=== PATIENT | female | born 1960 ===

== ENCOUNTER 2017-04-15 09:20 | Inpatient (IN) | payer BC ==
[~2017-04-15 09:20] MED LIST: Lactated Ringer's 1,000 ML IV ONE
[2017-04-15 09:26] VITALS: BMI 22.1
[2017-04-15 10:22] LABS: BLOOD UREA NITROGEN 10 mg/dl (7-17); CALCIUM 9.8 mg/dL (8.4-10.2); GFR AFRICAN-AMERICAN > 60; GFR NON-AFRICAN AMERICAN > 60
[2017-04-15 10:28] LABS: BASO # 0.1 K/uL (0.0-0.2); BASO % 0.4 % (0.0-2.0); EOS # 0.2 K/uL (0.0-0.7); LYMPH # 1.6 K/uL (1.0-4.3); LYMPH % 9.3 % (20.0-40.0); MEAN CELL VOLUME 90.4 fl (81.0-99.0); MEAN CORPUSCULAR HEMOGLOBIN 30.4 pg (27.0-31.0); MEAN CORPUSCULAR HGB CONC 33.6 g/dL (33.0-37.0); MEAN PLATELET VOLUME 7.9 fl (7.2-11.7); MONO # 1.4 K/uL (0.0-0.8); MONO % 8.4 % (0.0-10.0); NEUT # 13.6 K/uL (1.8-7.0); NEUT % 80.9 % (50.0-75.0); NRBC % 0.1 % (0.0-0.0); PLATELET COUNT 257 K/uL (130-400); RBC 4.61 Mil/uL (3.80-5.20); RED CELL DISTRIBUTION WIDTH 12.5 % (11.5-14.5); WHITE BLOOD COUNT 16.8 K/uL (4.8-10.8)
--- NOTE | 2017-04-15 12:04 | ED PDOC ---
HPI: General Adult Time Seen by Provider: 04/15/17 09:41 Chief Complaint (Nursing): ENT Problem Chief Complaint (Provider): Throat Pain and Difficulty swallowing History Per: Patient History/Exam Limitations: no limitations Onset/Duration Of Symptoms: Days (3 days) Have you had recent travel within the past 21 days to any of the following countries: [place], [place], [place] or [place]?: No Additional Complaint(s): So Avelar, a 56 year old female, presents to the ED for throat pain and difficulty swallowing she has been experiencing since Monday. The patient states that the symptoms started after she swallowed a chicken bone. She reports that the pain has been getting worse. Denies difficulty breathing, change in speech, denies drooling. Denies fever but did experience chills this morning. Past Medical History Reviewed: Historical Data, Nursing Documentation, Vital Signs Vital Signs: Last Vital Signs Temp 99.7 F H 04/15/17 13:16 Pulse 110 H 04/15/17 13:16 Resp 20 04/15/17 13:16 BP 140/90 04/15/17 13:16 Pulse Ox 100 04/15/17 13:07 - Medical History PMH: No Chronic Diseases - Surgical History Surgical History: No Surg Hx - Family History Family History: States: Unknown Family Hx - Home Medications Home Medications: Ambulatory Orders Medication Instructions Recorded No Known Home Med 04/15/17 - Allergies Allergies/Adverse Reactions: Allergies Allergy/AdvReac Type Severity Reaction Status Date / Time No Known Allergies Allergy Verified 04/15/17 09:27 Review of Systems ENT: Positive for: Throat Pain, Other (Difficulty swallowing) Neurological: Negative for: Change in Speech Physical Exam - Reviewed Nursing Documentation Reviewed: Yes Vital Signs Reviewed: Yes - Physical Exam Appears: Positive for: Non-toxic, No Acute Distress Head Exam: Positive for: ATRAUMATIC, NORMAL INSPECTION, NORMOCEPHALIC Skin: Positive for: Normal Color, Warm, Dry Eye Exam: Positive for: Normal appearance, EOMI, PERRL ENT: Positive for: Normal ENT Inspection, Pharynx Is (Oropharynx is patent.), Other (No subcutaneous emphysema;No crepitus; no drooling.) Neck: Positive for: Normal Cardiovascular/Chest: Positive for: Regular Rate, Rhythm, Chest Non Tender. Negative for: Tachycardia Respiratory: Positive for: Normal Breath Sounds. Negative for: Wheezing, Respiratory Distress Neurologic/Psych: Positive for: Alert - Laboratory Results Result Diagrams: 04/15/17 09:55 04/15/17 09:55 - ECG O2 Sat by Pulse Oximetry: 100 (RA) Pulse Ox Interpretation: Normal Medical Decision Making Medical Decision Makin Intial Impression: 56 year old female presenting with throat pain and difficulty swallowing Initial Plan: * Neck chest with contrast CT - rule out rupture or pnuemomediastinum * CBC * Reevaluation Labs reviewed WBC elevated 16.8 w left shift BMP unremarkable Blood cultures and sepsis workup initiated after WBC returned elevated. NS bolus ordered, blood cultures and lactate CT neck/chest discussed w radiologist Dr Ballesteros Appears as chicken bone lodged in esophageal wall with possible abscess formation/ perforation: Impression: There is an approximately 2.84 cm linear radiopaque foreign body that exhibits bony density . Findings are consistent with this patient's history of swallowed chicken bone. This foreign body is transversely lodged within the soft tissues below the level of the true vocal cords and posterior to the trachea possibly extending partially through the esophageal wall. Surrounding subcutaneous air is present consistent with perforation. . There also appears to be a small amount of surrounding fluid consistent with early infection. . The possibility of early small abscess cannot be completely excluded. Emergency room physician aware of the findings. CT chest: No signs mediastinitis at time. lactate 1.0, c/w sepsis but not severe sepsis. HR improving. D/w Dr Garza solution manager medicine and Dr Nelson solution manager GI, will take to endoscopy today. Remain NPO. Scribe Attestation Documented by Lory Rosen acting as a scribe for Cal Ponce MD. Provider Attestation: All medical record entries made by the Scribe were at my direction and personally dictated by me. I have reviewed the chart and agree that the record accurately reflects my personal performance of the history, physical exam, medical decision making, and the department course for this patient. I have also personally directed, reviewed, and agree with the discharge instructions and disposition. Disposition - Clinical Impression Clinical Impression: Perforation esophagus, Sepsis - Patient ED Disposition Is Patient to be Admitted: Yes Counseled Patient/Family Regarding: Studies Performed, Diagnosis (explained in beninese via Cathleen dykes RN) - Disposition Disposition Time: 12:35 Condition: GUARDED - Pt Status Changed To: Hospital Disposition Of: Inpatient - Admit Certification Admit to Inpatient:: After my assessment, the patient will require hospitalization for at least two midnights. This is because of the severity of symptoms shown, intensity of services needed, and/or the medical risk in this patient being treated as an outpatient. - POA Present On Arrival: None
[2017-04-15] MEDS ORDERED: Sodium Chloride 0.9% 1,000 ML IV STA (12:07)
[2017-04-15] MEDS ORDERED: Piperacillin/Tazobact 4.5 GM in Sodium Chloride 0.9% 100 ML IVPB STA (12:43)
[2017-04-15] MEDS ORDERED: Vancomycin 1 g Inj ONE (13:11)
--- NOTE | 2017-04-15 13:12 | CT ---
PROCEDURE: CT scan of the neck HISTORY: Dated 04/15/2017 swallowed chicken bone x 3days; neck/chest pain COMPARISON: No prior TECHNIQUE: Contiguous helical/ transaxial sections of the neck performed without intravenous contrast. Coronal and sagittal reformats generated. Radiation dose: DLP 503.47 mGy-cm This CT exam was performed using one or more of the following dose reduction techniques: Automated exposure control, adjustment of the mA and/or kV according to patient size, and/or use of iterative reconstruction technique. FINDINGS: Findings: The current study reveals a linear radiopaque foreign body that exhibits bony density and measures approximately 2.84 mm. Findings are consistent with this patient's history of swallowed chicken bone. This foreign body is transversely lodged within the soft tissues below the level of the true vocal cords and posterior to the trachea possibly extending partially through the esophageal wall. Surrounding subcutaneous air is present consistent with perforation. . There also appears to be a small amount of surrounding fluid consistent with early infection. . The possibility of early small abscess cannot be completely excluded. These findings were discussed with Dr. Ponce at approximately 12:45 p.m. with written down and read back verification. Rule out early on. There appears to be some mild wall thickening of the esophagus at immediately caudal to this on lodged foreign body. No other foreign bodies are identified. . . The true vocal cords appear symmetric. There is asymmetry of the pyriform sinuses, right-side of which is smaller in size than the left nonspecific. Free margin of the epiglottis unremarkable. Vallecular is symmetric. Oral cavity structures appear grossly unremarkable. The parapharyngeal fat spaces are relatively symmetric. Multiple small nonspecific bilateral cervical lymph nodes are seen within the jugulodigastric, posterior cervical spaces, submandibular and submental regions bilaterally. None of these lymph nodes appear pathologically enlarged. Submandibular, and parotid glands grossly unremarkable. Thyroid gland is somewhat heterogeneous likely due to crossing streak and beam hardening artifact arising from dense clavicles and shoulder girdles. The possibility of thyroid nodules or colloid cyst not excluded. Thyroid ultrasound could be performed for further evaluation. Note made of mucosal thickening and possible small fluid level left maxillary antrum. Orbits and contents unremarkable. Visualized upper mediastinal structures appear grossly unremarkable. Please refer to concurrent CT scan of the chest for additional details. Minor multilevel degenerative spondylosis of the cervical and upper thoracic spine. Slight straightening of the cervical spine could be due to patient positioning gantry however underlying element of muscle spasm not excluded. Impression: There is an approximately 2.84 cm linear radiopaque foreign body that exhibits bony density . Findings are consistent with this patient's history of swallowed chicken bone. This foreign body is transversely lodged within the soft tissues below the level of the true vocal cords and posterior to the trachea possibly extending partially through the esophageal wall. Surrounding subcutaneous air is present consistent with perforation. . There also appears to be a small amount of surrounding fluid consistent with early infection. . The possibility of early small abscess cannot be completely excluded. Emergency room physician aware of the findings. No other radiopaque foreign bodies. See above discussion for additional findings and details.
[2017-04-15 13:23] LABS: VENOUS BLOOD GAS BASE EXCESS 4.9 mmol/L (0.0-2.0); VENOUS BLOOD GAS PCO2 53 mmHg (40-60); VENOUS BLOOD GAS PO2 17 mm/Hg (30-55); VENOUS BLOOD PH 7.38 (7.32-7.43)
--- NOTE | 2017-04-15 13:24 | CT ---
PROCEDURE: CT Chest without contrast HISTORY: swallow chicken bone x3days; neck/chest pain COMPARISON: None. TECHNIQUE: Contiguous axial images were obtained through the chest without intravenous contrast enhancement. Sagittal and coronal reconstructions were performed. Radiation dose (DLP): 337.61 mGy-cm. This CT exam was performed using one or more of the following dose reduction techniques: Automated exposure control, adjustment of the mA and/or kV according to patient size, and/or use of iterative reconstruction technique. FINDINGS: LUNGS: Minor biapical pleural thickening and parenchymal scarring. Mild passive atelectasis both posterior lung capps. . No radiopaque foreign body seen within the lung parenchyma. No evidence of parenchymal mass or nodule seen. MEDIASTINUM: Again noted is a 2.8 cm linear radiopaque foreign body lodged transversely lodged within the posterior soft tissues dorsal to the esophagus possibly extending through the upper wall of the esophagus with surrounding subcutaneous air and possibly small amount fluid. Please refer concurrent CT scan of the neck and corresponding report which describes these findings in further detail. Ascending thoracic aorta measures approximately 3.3 cm and descending thoracic aorta measures approximately 2.1 cm. Pulmonary trunk measures 2.4 cm. No significant mediastinal adenopathy. Evaluation for hilar adenopathy is limited due to the lack of circulating intravenous contrast material. Central airway is midline and patent. No endoluminal lesions are identified. No evidence of subcutaneous air or fluid seen within the the mediastinum. Tiny hiatal hernia. PLEURA: No pleural fluid. No pneumothorax. BONES: Minor multilevel degenerative spondylosis of the thoracic spine. UPPER ABDOMEN: Visualized upper abdominal structures unremarkable. OTHER FINDINGS: None. IMPRESSION: Mild atelectasis both posterior lung zones. Radiopaque foreign body (chicken bone) transversely lodged within the posterior lower posterior soft tissues of the neck dorsal to the trachea and either just above and or through the soto of the upper esophagus associated with subcutaneous surrounding subcutaneous air and possibly small amount of fluid suggesting early infection. Please refer to concurrent CT scan of the neck and corresponding report for additional details. No evidence of mediastinal fluid or air. Emergency room physician aware these findings. No additional radiopaque foreign bodies. Mild biapical pleural thickening and parenchymal scarring.
[2017-04-15 13:25] LABS: BASOPHIL 1 % (0-2); LYMPHOCYTE 11 % (20-50); MONOCYTE 6 % (0-10); NEUTROPHIL 82 % (42-75); PLATELET ESTIMATE NORMAL (NORMAL); TOTAL CELLS COUNTED 100
[2017-04-15] MEDS: Sodium Chloride 0.9% 1,000 ML IV SCH (17:10)
[2017-04-15] MEDS: Piperacillin/Tazobact 4.5 GM in Sodium Chloride 0.9% 100 ML IVPB SCH (17:11)
[2017-04-15] MEDS ORDERED: EPINEPHrine 1 mg/ml (1:1000) Inj ONE (18:45)
[2017-04-15] MEDS ORDERED: Lidocaine 2% Jelly (5 ml) TOP ONE (18:45)
[2017-04-15] MEDS ORDERED: Lidocaine 1% Inj (20ml) ONE (18:45)
[2017-04-15] MEDS ORDERED: Midazolam 2 MG/2 ML VIAL ONE (19:49)
[2017-04-15] MEDS ORDERED: Propofol 10 mg/ml Inj (20 ML) ONE (19:50)
[2017-04-15] MEDS ORDERED: Succinylcholine 200 mg/10 ml Inj IV ONE (19:50)
--- NOTE | 2017-04-15 19:55 | CP.PCM.HP ---
History of Present Illness - History of Present Illness History of Present Illness: 56 yo female admitted with neck pain. Started while eating chicken. CT shows bone lodged in upper esophagus. Present on Admission - Present on Admission Any Indicators Present on Admission: No Review of Systems - Constitutional Constitutional: absent: Chills - EENT Ears: absent: Decreased Hearing Nose/Mouth/Throat: absent: Epistaxis - Cardiovascular Cardiovascular: absent: Chest Pain - Respiratory Respiratory: absent: Cough - Gastrointestinal Gastrointestinal: absent: Abdominal Pain Past Patient History - Past Medical History & Family History Past Medical History?: No - Past Social History Smoking Status: Never Smoked - CARDIAC Hx Cardiac Disorders: No - MUSCULOSKELETAL/RHEUMATOLOGICAL Hx Falls: No - PSYCHIATRIC Hx Psychophysiologic Disorder: No Hx Substance Use: No - SURGICAL HISTORY Hx Surgeries: No - ANESTHESIA Hx Anesthesia: No Meds Allergies/Adverse Reactions: Allergies Allergy/AdvReac Type Severity Reaction Status Date / Time No Known Allergies Allergy Verified 04/15/17 09:27 Physical Exam - Constitutional Appears: Well - Head Exam Head Exam: ATRAUMATIC - Eye Exam Eye Exam: Normal appearance - ENT Exam ENT Exam: Mucous Membranes Moist - Neck Exam Neck exam: Positive for: Normal Inspection - Respiratory Exam Respiratory Exam: Clear to Auscultation Bilateral - Cardiovascular Exam Cardiovascular Exam: REGULAR RHYTHM - GI/Abdominal Exam GI & Abdominal Exam: Normal Bowel Sounds, Soft. absent: Tenderness Results - Vital Signs Recent Vital Signs: Last Vital Signs Temp 100.2 F H 04/15/17 19:29 Pulse 108 H 04/15/17 19:29 Resp 14 04/15/17 19:29 BP 138/89 04/15/17 19:29 Pulse Ox 97 04/15/17 19:29 - Labs Result Diagrams: 04/15/17 09:55 04/15/17 09:55 Labs: Laboratory Results - last 24 hr 04/15/17 13:15 pO2 17 L VBG pH 7.38 VBG pCO2 53 VBG HCO3 26.7 VBG Total CO2 33.0 H VBG O2 Sat (Calc) 29.8 L VBG Base Excess 4.9 H VBG Potassium 4.8 Sodium 136.0 Chloride 103.0 Glucose 102 Lactate 1.0 FiO2 21.0 Venous Blood Potassium 4.8 - Imaging and Cardiology CT scan - chest Status: Image reviewed by me, Report reviewed by me Assessment & Plan (1) Perforation esophagus Assessment and Plan: With impacted chicken bone just below upper esophageal sphincter. Broad spectrum antibiotics and upper endoscopy under general anathesia. Status: Acute
[2017-04-15] MEDS: Lactated Ringer's 1,000 ML IV SCH ×2 (21:40→21:50)
[2017-04-16] MEDS: Piperacillin/Tazobact 4.5 GM in Sodium Chloride 0.9% 100 ML IVPB SCH ×3 (00:27→19:00)
[2017-04-16] MEDS: Sodium Chloride 0.9% 1,000 ML IV SCH ×2 (02:30→16:54)
[2017-04-16] MEDS: Lactated Ringer's 1,000 ML IV SCH ×3 (07:10→23:26)
[2017-04-16] MEDS ORDERED: Acetaminophen 160 mg/5 ml UD PO PRN (10:00)
--- NOTE | 2017-04-16 10:00 | CP.PCM.PN ---
Subjective - Date & Time of Evaluation Date of Evaluation: 04/16/17 Time of Evaluation: 09:58 - Subjective Subjective: Patient c/o sore throat . No chest or abdominal complaints. Objective - Vital Signs/Intake and Output Vital Signs (last 24 hours): Temp Pulse Resp BP Pulse Ox 99.6 F 95 H 18 122/80 96 04/16/17 08:00 04/16/17 08:00 04/16/17 08:00 04/16/17 08:00 04/16/17 08:00 Intake and Output: 04/16/17 04/16/17 06:59 18:59 Intake Total 1200 Balance 1200 - Medications Medications: Current Medications Hydromorphone HCl (Dilaudid) 2 mg IVP Q6 PRN PRN Reason: Pain, moderate (4-7) Last Admin: 04/16/17 00:30 Dose: 2 mg Vancomycin HCl 1 gm/ Sodium (Chloride) 250 mls @ 166.667 mls/hr IVPB DAILY [facility] Last Admin: 04/16/17 09:09 Dose: 166.667 mls/hr Piperacillin Sod/Tazobactam (Sod 4.5 gm/ Sodium Chloride) 100 mls @ 100 mls/hr IVPB Q8 [facility] Last Admin: 04/16/17 09:09 Dose: 100 mls/hr Sodium Chloride (Sodium Chloride 0.9%) 1,000 mls @ 100 mls/hr IV .Q10H [facility] Stop: 04/16/17 16:07 Last Admin: 04/16/17 02:30 Dose: Not Given Lactated Ringer's (Lactated Ringer's) 1,000 mls @ 15 mls/hr IV .Q24H [facility] Last Admin: 04/15/17 21:40 Dose: 0 mls Lactated Ringer's (Lactated Ringer's) 1,000 mls @ 100 mls/hr IV .Q10H [facility] Last Admin: 04/16/17 07:10 Dose: 100 mls/hr - Head Exam Head Exam: ATRAUMATIC - ENT Exam ENT Exam: Mucous Membranes Moist - Neck Exam Neck Exam: Full ROM, Normal Inspection, Tenderness - Respiratory Exam Respiratory Exam: NORMAL BREATHING PATTERN - Cardiovascular Exam Cardiovascular Exam: REGULAR RHYTHM - GI/Abdominal Exam GI & Abdominal Exam: Soft, Normal Bowel Sounds. absent: Tenderness Assessment and Plan (1) Perforation esophagus Assessment & Plan: No chest crepitance or pain. Advance to clears. Ice chips for throat pain Status: Acute
[2017-04-16 11:15] LABS: BASO # 0.1 K/uL (0.0-0.2); BASO % 0.5 % (0.0-2.0); EOS # 0.2 K/uL (0.0-0.7); EOS % 1.3 % (0.0-4.0); HEMOGLOBIN 12.1 g/dL (12.0-16.0); LYMPH # 1.6 K/uL (1.0-4.3); LYMPH % 12.2 % (20.0-40.0); MEAN CORPUSCULAR HEMOGLOBIN 30.3 pg (27.0-31.0); MEAN CORPUSCULAR HGB CONC 33.3 g/dL (33.0-37.0); MONO % 7.9 % (0.0-10.0); NEUT # 10.4 K/uL (1.8-7.0); NEUT % 78.1 % (50.0-75.0); RBC 3.99 Mil/uL (3.80-5.20); RED CELL DISTRIBUTION WIDTH 12.7 % (11.5-14.5); WHITE BLOOD COUNT 13.3 K/uL (4.8-10.8)
[2017-04-16] MEDS: Acetaminophen 650mg/20.3ml solution UD PO PRN ×3 (11:24→23:27)
[2017-04-17] MEDS: Piperacillin/Tazobact 4.5 GM in Sodium Chloride 0.9% 100 ML IVPB SCH ×2 (00:38→08:45)
[2017-04-17] MEDS: Lactated Ringer's 1,000 ML IV SCH (05:03)
[2017-04-17] MEDS: Acetaminophen 650mg/20.3ml solution UD PO PRN (05:03)
[2017-04-17 06:39] LABS: HEMOGLOBIN 11.8 g/dL (12.0-16.0); MEAN CELL VOLUME 91.8 fl (81.0-99.0); MEAN CORPUSCULAR HEMOGLOBIN 31.3 pg (27.0-31.0); MEAN CORPUSCULAR HGB CONC 34.1 g/dL (33.0-37.0); RBC 3.78 Mil/uL (3.80-5.20); RED CELL DISTRIBUTION WIDTH 12.4 % (11.5-14.5); WHITE BLOOD COUNT 9.5 K/uL (4.8-10.8)
[2017-04-17 07:40] LABS: ALBUMIN 3.5 g/dL (3.5-5.0); ALT/SGPT 26 U/L (9-52); AST/SGOT 65 U/L (14-36); BLOOD UREA NITROGEN 8 mg/dl (7-17); CALCIUM 9.2 mg/dL (8.4-10.2); GFR AFRICAN-AMERICAN > 60; GFR NON-AFRICAN AMERICAN > 60
[2017-04-17 12:39] VITALS: RESP 20; O2SAT 97
--- NOTE | 2017-04-17 13:11 | CP.PCM.PN ---
Subjective - Date & Time of Evaluation Date of Evaluation: 04/17/17 Time of Evaluation: 13:08 - Subjective Subjective: Patient feeling well and tolerating diet. Neck pain better Objective - Vital Signs/Intake and Output Vital Signs (last 24 hours): Temp Pulse Resp BP Pulse Ox 98.5 F 80 20 134/83 97 04/17/17 12:38 04/17/17 12:38 04/17/17 12:38 04/17/17 12:38 04/17/17 12:38 - Medications Medications: Current Medications Acetaminophen (Tylenol 650mg/20.3ml Solution Ud) 650 mg PO Q4 PRN PRN Reason: Pain, Mild (1-3) Last Admin: 04/17/17 05:03 Dose: 650 mg Hydromorphone HCl (Dilaudid) 2 mg IVP Q6 PRN PRN Reason: Pain, moderate (4-7) Last Admin: 04/16/17 00:30 Dose: 2 mg Vancomycin HCl 1 gm/ Sodium (Chloride) 250 mls @ 166.667 mls/hr IVPB DAILY [facility] Last Admin: 04/17/17 08:44 Dose: 166.667 mls/hr Piperacillin Sod/Tazobactam (Sod 4.5 gm/ Sodium Chloride) 100 mls @ 100 mls/hr IVPB Q8 [facility] Last Admin: 04/17/17 08:45 Dose: 100 mls/hr Lactated Ringer's (Lactated Ringer's) 1,000 mls @ 15 mls/hr IV .Q24H [facility] Last Admin: 04/16/17 23:26 Dose: Not Given Lactated Ringer's (Lactated Ringer's) 1,000 mls @ 100 mls/hr IV .Q10H [facility] Last Admin: 04/17/17 05:03 Dose: 100 mls/hr - Labs Labs: 04/17/17 05:00 04/17/17 05:00 - Head Exam Head Exam: ATRAUMATIC - Eye Exam Eye Exam: Normal appearance - ENT Exam ENT Exam: Mucous Membranes Moist - Neck Exam Neck Exam: Full ROM - Respiratory Exam Respiratory Exam: Clear to Ausculation Bilateral - Cardiovascular Exam Cardiovascular Exam: REGULAR RHYTHM, +S1, +S2 - GI/Abdominal Exam GI & Abdominal Exam: Soft, Normal Bowel Sounds. absent: Tenderness Assessment and Plan (1) Perforation esophagus Assessment & Plan: Clinically doing well with no fever and chest pain, and tolerating diet. WBC is now normal. May go home on Augmentin 875 mg BID x 5 days. Patient told to return if fever or chest pain occur. Status: Acute
[2017-04-17 15:47] VITALS: BP 126/84; PULSE 81; TEMP 99.2
== END 2017-04-17 16:10 | disposition home or self-care (01) | DRG 370 ==
LOC: H.ER 09:20 → H.ERHOLD 12:56 → H.TEL 14:12
PROVIDERS: ADMIT Internal Medicine; ATTEND Internal Medicine
PROC: 0DJ08ZZ Inspection of Upper Intestinal Tract, Via Natural or Artificial Opening Endoscopic (ICD-10-PCS; principal; 2017-04-15 19:15)
DX: K22.3 Perforation of esophagus (principal); T18.128A Food in esophagus causing other injury, initial encounter; X58.XXXA Exposure to other specified factors, initial encounter; Y92.9 Unspecified place or not applicable